=== PATIENT | female | born 1975 | race Caucasian/White ===

== ENCOUNTER 2017-07-13 05:56 | Observation (INO) | payer OTHER ==
[~2017-07-13 05:56] MED LIST: Buffered Lidocaine 0.9% SYRIN* 5 ML/SYR SYRINGE INTRADERM ONE
[2017-07-13] MEDS ORDERED: Famotidine IV* 10 MG/ML 2 ML (20 mg) IV ONE (06:00)
[2017-07-13] MEDS ORDERED: Scopolamine 1.5 mg* PATCH TRANSDERM ONE (06:00)
[2017-07-13] MEDS ORDERED: Dexamethasone IV* 4 MG/ML 1 ML (4 MG) IV SLOW PU ONE (06:00)
[2017-07-13] MEDS ORDERED: ceFAZolin 2 GM PREMIX (*) 2 GM/50 ML BAG IVPB ONE (06:08)
[2017-07-13] MEDS ORDERED: Famotidine IV* 10 MG/ML 2 ML (20 mg) ONE (06:08)
[2017-07-13] MEDS ORDERED: Dexamethasone IV* 4 MG/ML 1 ML (4 MG) ONE (06:08)
[2017-07-13] MEDS ORDERED: Buffered Lidocaine 0.9% SYRIN* 5 ML/SYR SYRINGE ONE (06:08)
[2017-07-13] MEDS ORDERED: Scopolamine 1.5 mg* PATCH ONE (06:08)
[2017-07-13] MEDS ORDERED: Phenazopyridine TAB* 100 MG ONE (06:08)
[2017-07-13] MEDS ORDERED: Midazolam* 1 MG/ML 2 ML VIAL (2 MG) ONE (07:09)
[2017-07-13] MEDS ORDERED: fentaNYL* 50 MCG/ML 2 ML VIAL (100 MCG VIAL) ONE ×2 (07:09→08:53)
[2017-07-13] MEDS ORDERED: Propofol* 10 MG/ML 20 ML BTL IV PUSH ONE (07:13)
[2017-07-13] MEDS ORDERED: Rocuronium* 10 MG/ML VIAL ONE (07:13)
[2017-07-13 07:21] LABS: Hematocrit 35 % (35-47); Hemoglobin 12.1 g/dl (12.0-16.0); Mean Corpuscular HGB Conc 34 g/dl (31-36); Mean Corpuscular Hemoglobin 32 pg (27-31); Mean Corpuscular Volume 94 fL (80-97); Mean Platelet Volume 10 um3 (7.4-10.4); Red Blood Count 3.72 10^6/ul (4.0-5.4); Red Cell Distribution Width 12 % (10.5-15); White Blood Count 9.4 10^3/ul (3.5-10.8)
[2017-07-13] MEDS ORDERED: Bupivacaine 0.25% SDV* 30 ML ONE (07:36)
[2017-07-13] MEDS ORDERED: Acetaminophen IV 1GM/100ML * 100 ML ONE (07:39)
[2017-07-13] MEDS ORDERED: oxyCODONE TAB* 5 MG TAB PO PRN (08:27)
[2017-07-13] MEDS ORDERED: Ondansetron INJ* 2 MG/ML VIAL IV PRN ×2 (08:27→11:38)
[2017-07-13] MEDS ORDERED: HYDROmorphone INJ* 1 MG/ML CARPUJECT SYRINGE IV PRN ×2 (08:27→13:39)
[2017-07-13] MEDS ORDERED: DiMENhydriNATE IV* 50 MG/ML VIAL IV PUSH PRN (08:27)
[2017-07-13] MEDS ORDERED: Ibuprofen TAB* 600 MG PO PRN ×2 (08:27→11:38)
[2017-07-13] MEDS ORDERED: fentaNYL* 50 MCG/ML 2 ML VIAL (100 MCG VIAL) IV PRN (08:27)
[2017-07-13] MEDS ORDERED: Ketorolac INJ* 30 MG/ML 1 ML VIAL ONE (08:39)
[2017-07-13] MEDS ORDERED: EPHEDrine (Pressors)* 50 MG/ML VIAL ONE (08:39)
[2017-07-13] MEDS ORDERED: Sterile Water for Inj* 10 ML ONE (08:39)
[2017-07-13] MEDS ORDERED: Ondansetron INJ* 2 MG/ML VIAL ONE (08:39)
[2017-07-13] MEDS ORDERED: Esmolol* 10 MG/ML 10 ML (100 mg) ONE (08:40)
[2017-07-13] MEDS ORDERED: Glycopyrrolate IV* 0.2 MG/ML 1 ML VIAL ONE (09:18)
[2017-07-13] MEDS ORDERED: Neostigmine Methylsulfate* 2 MG/2 ML SYRINGE ONE (09:18)
[2017-07-13] MEDS ORDERED: oxyCODONE/Acetamin 5/325 MG* TAB ONE (11:58)
[2017-07-13 16:48] LABS: Hematocrit 36 % (35-47); Hemoglobin 11.9 g/dl (12.0-16.0)
[2017-07-13] MEDS: oxyCODONE/Acetamin 5/325 MG* TAB PO PRN ×2 (16:59→22:00)
[2017-07-13] MEDS ORDERED: DOXEPIN 10 MG PO SCH (21:00)
--- NOTE | 2017-07-13 21:26 | OP ---
DATE OF OPERATION: 07/13/17 - ROOM #340 DATE OF : 73 SURGEON: Zaid Patiño MD. JUNIOR ACCOUNTANT BOOKKEEPER: Dr. Pitts. ANESTHESIOLOGIST: Susanne Lopez MD ANESTHESIA: General endotracheal tube. PRE-OP DIAGNOSES: Endometriosis, pelvic pain, cervical dysplasia. POST-OP DIAGNOSES: Endometriosis, pelvic pain, cervical dysplasia plus small __ _seedling___ fibroid. OPERATIVE PROCEDURE: Total laparoscopic hysterectomy and bilateral salpingectomy and cystoscopy. ESTIMATED BLOOD LOSS: Minimal. SPECIMENS: Include uterus and tubes and cervix. FINDINGS: On exam under anesthesia, uterus was retroverted. The cervix, vagina and vulva appeared normal on laparoscopy. The anterior bladder flap appeared normal. The cul-de-sac contained some old scarring. Both fallopian tubes appeared normal. The ovaries appeared normal. The uterus was slightly large and boggy and soft consistent with adenomyosis and there was a small ___ seedling___ fibroid anteriorly. DESCRIPTION OF PROCEDURE: The patient identified and procedure identified as a total laparoscopic hysterectomy and bilateral salpingectomy and cystoscopy. The patient was taken to the operating room, prepped and draped in the usual fashion in the dorsal lithotomy position under general anesthesia. A single tooth tenaculum was placed on the anterior lip of the cervix and a medium VCare was placed over the cervix and into the uterine cavity. A small infraumbilical incision was made and Veress needle was inserted through this. The abdomen was insufflated to 15 mmHg. The Veress needle was removed and the trocars inserted under direct visualization. The above findings were noted. A trocar was placed on each abdominal side wall lateral to the umbilicus approximately 8 cm under direct visualization. The LigaSure was used to grasp the left fallopian tube followed out to its fimbriated ends. The mesosalpinx was then ligated and incised using the LigaSure up to the level of the ovarian ligament. This was then ligated and incised on the left. Same procedure was carried out on the right. A bladder flap was created via sharp and blunt dissection using the LigaSure. The bladder flap was further dissected caudally using the LigaSure. The uterine vessels on both sides were then ligated using LigaSure and then incised medial to the ligation. The ligation was lateral to the cuff and the bladder flap was further dissected. Using Unipolar cautery, the vaginal cuff was incised using 20 of Valleylab mode. This was brought along the rim of the VCare until the green was visualized and the hook was used on a 20 of Unipolar Valleylab mode until the uterus was excised from the vaginal cuff. The uterus was brought out through the vagina. The vagina was then closed vaginally using 0 Polysorb running locked stitches. Hemostasis verified. The Monroy was removed and the cystoscope inserted. Both ureters were noted to have good jets. The dome of the bladder was inspected and found to be intact. The abdominal cavity was then reinspected using the laparoscope and all instruments removed from the abdomen and the abdomen was deflated of CO2. Skin was closed initially using skin glue. Due to tension, these would not stay close and so two 4-0 Polysorb sutures were placed in the skin on the right and left abdominal sidewall. The skin glue did hold in the umbilicus. All sponge and instrument counts were correct and the patient returned to recovery room in stable condition. [id number]/[facility] #: [id number] SANDY
[2017-07-14] MEDS: oxyCODONE/Acetamin 5/325 MG* TAB PO PRN ×2 (03:34→09:50)
[2017-07-14 08:14] VITALS: BP 107/62
[2017-07-16] MEDS ORDERED: Scopolamine PATCH Remove* 1 NOTE MISC PATCH OFF ONE (06:00)
== END 2017-07-14 11:25 | disposition home or self-care (01) ==
LOC: OR 05:56 → SSU 11:10
PROVIDERS: ADMIT Obstetrics & Gynecology; ATTEND Obstetrics & Gynecology
PROC: 0UT74ZZ Resection of Bilateral Fallopian Tubes, Percutaneous Endoscopic Approach (ICD-10-PCS; 2017-07-13)
PROC: 0UT94ZZ Resection of Uterus, Percutaneous Endoscopic Approach (ICD-10-PCS; principal; 2017-07-13 07:45)
DX: N80.0 Endometriosis of uterus (principal); N87.9 Dysplasia of cervix uteri, unspecified; R10.2 Pelvic and perineal pain
CPT/HCPCS: 36415; 81025; 85014; 85018; 85025; 86850; 86900; 86901; 88307; A9270-GY; G0378; J0690; J1100; J1885; J2250; J2405; J2704; J3010

== ENCOUNTER 2018-11-13 19:59 | Emergency (ER) | payer OTHER ==
[2018-11-13 20:17] VITALS: BP 127/72
[2018-11-13] MEDS ORDERED: Cyclobenzaprine TAB* 10 MG PO ONE (21:24)
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
== END 2018-11-13 21:30 | disposition home or self-care (01) ==
LOC: UCEAST 19:59
DX: S16.1XXA Strain of muscle, fascia and tendon at neck level, initial encounter (principal); V89.2XXA Person injured in unspecified motor-vehicle accident, traffic, initial encounter; Y93.9 Activity, unspecified; Y92.410 Unspecified street and highway as the place of occurrence of the external cause; Z87.891 Personal history of nicotine dependence
CPT/HCPCS: 99212; A9270-GY; G0463

== ENCOUNTER 2019-05-13 09:11 | Emergency (ER) | payer OTHER ==
[2019-05-13 09:28] VITALS: BP 125/68
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
== END 2019-05-13 10:05 | disposition home or self-care (01) ==
LOC: UCEAST 09:11
DX: S80.211A Abrasion, right knee, initial encounter (principal); F17.210 Nicotine dependence, cigarettes, uncomplicated; Z88.5 Allergy status to narcotic agent; Z88.8 Allergy status to other drugs, medicaments and biological substances; W19.XXXA Unspecified fall, initial encounter; Y92.9 Unspecified place or not applicable
CPT/HCPCS: 99212; G0463

== ENCOUNTER 2019-06-06 08:10 | Day surgery (SDC) | payer OTHER ==
[~2019-06-06 08:10] MED LIST changes: -Buffered Lidocaine 0.9% SYRIN* 5 ML/SYR SYRINGE INTRADERM ONE; +Buffered Lidocaine 1% SYRIN* 1 ML/SYRINGE INTRADERM ONE; +Famotidine IV* 10 MG/ML 2 ML (20 mg) IV ONE; +Famotidine IV* 10 MG/ML 2 ML (20 mg) ONE; +Lactated Ringers 1000 ML Bag* 1,000 ML IV SCH; +Midazolam* 1 MG/ML 2 ML VIAL (2 MG) ONE; +Propofol* 10 MG/ML 20 ML BTL ONE; +fentaNYL* 50 MCG/ML 2 ML VIAL (100 MCG VIAL) ONE
[2019-06-06] MEDS ORDERED: ceFAZolin 2 GM PREMIX in ORs 2 GM/50 ML BAG ONE (08:18)
[2019-06-06] MEDS ORDERED: Dexamethasone IV* 4 MG/ML 1 ML (4 MG) ONE (09:16)
[2019-06-06] MEDS ORDERED: Bupivacaine 0.5%* 50 ML MDV VIAL ONE (09:16)
[2019-06-06] MEDS ORDERED: Lidocaine 1% INJ* 10 MG/ML 30 ML SDV ONE (09:16)
[2019-06-06] MEDS ORDERED: Ondansetron INJ* 2 MG/ML VIAL IV PRN (10:02)
[2019-06-06] MEDS ORDERED: Naloxone* 0.4 MG/ML 1 ML VIAL IV PRN (10:02)
[2019-06-06] MEDS ORDERED: Propofol* 10 MG/ML 20 ML BTL ONE (10:08)
[2019-06-06 11:51] VITALS: BP 118/70
--- NOTE | 2019-06-06 13:01 | OP ---
OPERATIVE REPORT: DATE OF OPERATION: 06/06/19 DATE OF : 73 SURGEON: Oscar London DPM. 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 ANESTHESIA: MAC with local. PRE-OP DIAGNOSIS: Painful chronic tailor's bunion deformity, left foot. POST-OP DIAGNOSIS: Painful chronic tailor's bunion deformity, left foot. OPERATIVE PROCEDURE: Tailor's bunionectomy with fifth metatarsal osteotomy, left foot. PATHOLOGY: Degenerative bone. HEMOSTASIS: Pneumatic ankle tourniquet. ESTIMATED BLOOD LOSS: Less than 20 cc. MATERIAL: A 3.0 mm cannulated [place] screw. INDICATIONS: The patient with chronic left forefoot pain and deformity involving the fifth metatarsa l. She had previous simple tailor's bunionectomy, which offered temporary relief but progressively t he pain has returned and she needs an osteotomy to reduce the fourth intermetatarsal angle induced pr essure at the plantar, lateral and medial aspect of the fifth metatarsal head of the left foot. The patient opts for surgery at this time to attempt to decrease pain and improve function. DESCRIPTION OF PROCEDURE: The patient was brought to the operating room, placed on the operating burke m table in the supine position. The anesthesia department administered IV sedation and a peripheral nerve block was performed about the left foot with a 1:1 mixture of 1% lidocaine plain and 0.5% Christina ine plain. The left foot was then prepped and draped in the usual fashion. The left foot was exsang uinated with an Esmarch bandage. The pneumatic ankle tourniquet was inflated to 250 mmHg about a wel l-padded left ankle. Attention was directed to the dorsal lateral aspect of the left foot over the f ifth metatarsal and a linear incision was made using previous surgical scar as much as possible. The incision was deepened through subcutaneous tissues. There was noted to be some fibrous and scar tis wanda, the tissue planes were reestablished with care being taken to retract neurovascular structures a nd cauterize superficial bleeders as needed. A periosteal and capsular incision was made to allow fo r exposure of the fifth metatarsal. There was minimal hypertrophic bone in the fifth metatarsal head , some of this was burred smooth. Surgical site was flushed with copious amounts of normal sterile sa line. Next, a closing base wedge osteotomy was performed with the apex and the hinge maintaining the proximal and lateral aspect of the fifth metatarsal. The osteotomy was reduced. A temporary fixati on was achieved with a bone clamp and the wire from the screw set after assessing positioning and cor rection and using standard technique, a 3.0 mm [place] cannulated screw was placed across the osteoto my site. Temporary fixation was removed. Again, the correction and the fixation was assessed and th e osteotomy was inspected and found to be solid with no detectable motion or gapping and the screw wa s 2 fingers tight. Surgical site was flushed with copious amounts of normal sterile saline. The per iosteal and capsular tissues and deep fascia were reapproximated and secured with 2-0 Vicryl and 4-0 Vicryl, subcutaneous tissues were reapproximated with 4-0 Vicryl and skin was closed with 5-0 nylon. A 12 mg of dexamethasone phosphate was infiltrated about the surgical site. The incision was dresse d with Xeroform gauze, Mere and a light Coban wrap. The pneumatic ankle tourniquet was deflated abo ut the left ankle and a prompt hyperemic response was notable in all 5 digits of the patient's left f oot. Having appeared to have tolerated the procedure and anesthesia well, the patient was transporte d via cart from the operating room to Recovery in satisfactory condition with cap refill less than 3 seconds to all digits of the left foot. [id number]/[facility] #: [id number]
== END 2019-06-06 11:36 | disposition home or self-care (01) ==
LOC: OREAST 08:10
PROVIDERS: ATTEND Podiatrist Foot Surgery
DX: M21.622 Bunionette of left foot (principal); J45.909 Unspecified asthma, uncomplicated; E78.00 Pure hypercholesterolemia, unspecified; I73.00 Raynaud's syndrome without gangrene; K21.9 Gastro-esophageal reflux disease without esophagitis; Z72.0 Tobacco use
CPT/HCPCS: 76000; 88304; 88311; C1713; C1776; J0690; J1100; J2250; J2704; J3010; J3490